=== PATIENT | female | born 1950 | race Caucasian/White ===

== ENCOUNTER 2016-04-29 09:40 | Emergency (ER) | payer MEDICARE, OTHER ==
[2016-04-29 09:11] LABS: BASOPHILS 0.5 %; BASOPHILS ABSOLUTE 0.02 10/3/uL (0.0-0.16); EOSINOPHILS 0 %; ER CBC TAT 0 Hrs 04 MinsNP; HEMATOCRIT 40.3 % (36.0-48.0); HEMOGLOBIN 13.6 g/dL (12.0-16.0); IMMATURE GRANULOCYTES 0.2 %; IMMATURE GRANULOCYTES ABSOLUTE 0.01 10/3/uL (0.0-0.11); LYMPHOCYTES 9.5 %; LYMPHOCYTES ABSOLUTE 0.42 10/3/uL (0.67-4.30); MANUAL DIFF NO %; MEAN CORPUS HGB CONC 33.7 g/dL (32.0-36.0); MEAN CORPUSCULAR HEMOGLOB 33.2 pg (26.0-34.0); MEAN CORPUSCULAR VOLUME 98.3 fL (80-100); MEAN PLATELET VOLUME 9.1 fL (9.2-13.0); MONOCYTES 2.7 %; MONOCYTES ABSOLUTE 0.12 10/3/uL (0.21-1.20); NEUTROPHILS 87.1 %; NEUTROPHILS ABSOLUTE 3.86 10/3/uL (2.02-8.40); PLATELET COUNT 313 10/3/uL (150-400); RBC DISTRIBUTION WIDTH 12.4 % (12.0-16.0); WHITE BLOOD CELLS 4.4 10/3/uL (4.5-10.5)
[2016-04-29 09:25] LABS: A/G RATIO 1.4 (0.7-1.9); ALBUMIN 4.6 G/DL (3.5-5.0); ALKALINE PHOSPHATASE 63 U/L (45-117); BUN (BLOOD UREA NITROGEN) 16 MG/DL (6-23); CALCIUM, SERUM 9.5 MG/DL (8.5-10.4); CHLORIDE, SERUM 94 MMOL/L (96-112); CREATININE 0.95 MG/DL (0.55-1.02); GFR AFRICAN AMERICAN 72 ML/MIN (>=60); GFR NON AFRICAN AMERICAN 62 ML/MIN (>=60); GLUCOSE, SERUM 112 MG/DL (60-99); POTASSIUM, SERUM 3.9 MMOL/L (3.5-5.3); SGOT(AST) 22 U/L (5-40); SGPT(ALT) 24 U/L (5-65); SODIUM, SERUM 138 MMOL/L (135-148); TOTAL BILIRUBIN 0.6 MG/DL (0-1.2); TOTAL PROTEIN 7.9 G/DL (6.0-8.5)
[2016-04-29 09:26] LABS: CO2 (CARBON DIOXIDE) 31 MMOL/L (24-34); GLOBULIN 3.3 G/DL (2.5-4.1)
[~2016-04-29 09:40] MED LIST: APRISO PO; BENTYL10 PO; CITRACAL PO; COQ10100 MG PO; DIOVAN HC1 PO; MIACALCIN NAS; MILK THISTLE PO; PEP20 PO; PROTONIX PO; SUCR PO; ZOFRANODT8 PO
[2016-04-29 11:15] LABS: ASCORBIC ACID (UR NOT ORDER) NEG (NEG); BILIRUBIN, URINE NEGATIVE (NEG); KETONE, URINE 20 MG/DL (NEG); LEUKOCYTE ESTERASE(NOT OR NEG (NEG); NITRITE (URINE) NEG (NEG); WBC (NOT ORDERED) (RFLEX) < 1 (0-5)
== END 2016-04-29 15:25 | disposition home or self-care (01) ==
LOC: ER 09:40
PROVIDERS: Nurse Practitioner
DX: R10.9 Unspecified abdominal pain (principal); R11.2 Nausea with vomiting, unspecified; I10 Essential (primary) hypertension; Z91.041 Radiographic dye allergy status; Z79.899 Other long term (current) drug therapy
CPT/HCPCS: 74176; 80053; 81001; 83605; 83690; 85025; 93005; 96374; 96375; 99285; J1980; J2405; J2550

== ENCOUNTER 2016-10-28 10:22 | Observation (INO) | payer MEDICARE, OTHER ==
[~2016-10-28] VITALS: Ht 162.6 cm; Wt 41.4 kg
--- NOTE | ~2016-10-28 | EGD ---
EGD REPORT [facility] [address] [address] NAME: LEVI DORMAN : [birth year] STATUS : ADM Nataly PAT#: [id number] AGE: 65 ADM/REG DATE : 10/28/16 MR#: [id number] REPORT SERV DATE: 10/29/16 DICTATED BY: MONICA CAMERON DATE: 10/29/16 REPORT STATUS : Draft [facility] DATE: 10/29/16 Pulmonology Patient Name: Levi Dorman Procedure Date: 10/29/2016 3:05 PM Date of : 1950 Attending MD: SHIRA CAMERON MD Procedure Date No Time: 10/29/2016 Procedure: EBUS Bronchoscopy Indications: Lung mass and suspected liver lesions Providers: SHIRA CAMERON MD Referring MD: VANESA SOARES MD Medicines: Lidocaine 2% 20 mL; Topical epinephrine 1:20K 10 mLs Complications: No immediate complications Procedure: Pre-Anesthesia Assessment: - ASA Grade Assessment: III - A patient with severe systemic disease. - A History and Physical has been performed. Patient meds and allergies have been reviewed. The risks and benefits of the procedure and the sedation options and risks were discussed with the patient. All questions were answered and informed consent was obtained. Patient identification and proposed procedure were verified prior to the procedure by the physician and the nurse in the pre-procedure area in the procedure room. Mental Status Examination: normal. Respiratory Examination: poor air movement. CV Examination: normal and RRR, no murmurs, no S3 or S4. ASA Grade Assessment: III - A patient with severe systemic disease. After reviewing the risks and benefits, the patient was deemed in satisfactory condition to undergo the procedure. The anesthesia plan was to use general anesthesia. Immediately prior to administration of medications, the patient was re-assessed for adequacy to receive sedatives. The heart rate, respiratory rate, oxygen saturations, blood pressure, adequacy of pulmonary ventilation, and response to care were monitored throughout the procedure. The physical status of the patient was re-assessed after the procedure. After obtaining informed consent, the BF [id number] was introduced through the mouth, via the endotracheal tube (the patient was intubated for the procedure) and advanced to the tracheobronchial tree. the Bronchoscope was introduced through the mouth, via the endotracheal tube (the patient was intubated for the procedure) and advanced to the tracheobronchial tree. The procedure was accomplished without difficulty. The patient EGD REPORT [address] [address] NAME: LEVI DORMAN : [birth year] STATUS : ADM Nataly PAT#: [id number] AGE: 65 ADM/REG DATE : 10/28/16 MR#: [id number] REPORT SERV DATE: 10/29/16 DICTATED BY: MONICA CAMERON DATE: 10/29/16 REPORT STATUS : Draft TRANSCRIBED BY: [employer] DATE: 10/29/16 tolerated the procedure well. Findings: The laryngeal mask airway is in normal position. The vocal cords move normally with breathing. The subglottic space is normal. The trachea is of normal caliber. The sheila is sharp. The tracheobronchial tree was examined to at least the first subsegmental level. Endobronchial disease noted in the LMS and LLL. Brushings were obtained in the left mainstem bronchus of the lung and sent for routine cytology. One sample was obtained. Bronchoalveolar lavage was performed in the left lower lobe of the lung and sent for routine cytology. 30 mL of fluid were instilled. 20 mL were returned. The return was bloody. Endobronchial biopsies were performed in the left mainstem bronchus of the lung using a forceps and sent for histopathology examination. Two samples were obtained. EBUS TBNA of left lung mass x 6 passes for cytology The FIO2 was lowered to less than 40% and argon plasma coagulation therapy was performed for hemostasis. Topical epinephrine was also applied for hemostasis. Impression: Rapid On-Site Evaluation (NYDIA): Preliminary cytology is POSITIVE for small cell carcinoma (final results are pending). Recommendation: - Chest X-ray post-procedure. - Refer to/consult with Oncology. - MRI of the brain with and without contrast - Outpatient PET CT - Outpatient Radiation therapy consult for PCI vs whole brain. If patient not an appropriate for chemotherapy, I would recommend XRT to the LMS due to airway obstruction. Attending Participation: I personally performed the entire procedure. SHIRA CAMERON MD 10/29/2016 5:14 PM This report has been signed electronically. Number of Addenda: 0 Note Initiated On: 10/29/2016 3:05 PM [address] [id number]
--- NOTE | ~2016-10-28 | DS ---
Discharge Summary [facility] [address] [place]. [address] NAME: JOSE ARCEO : [birth year] STATUS : DIS Nataly PAT#: [id number] AGE: 65 ADM/REG DATE : 10/28/16 MR#: [id number] REPORT SERV DATE: 10/31/16 DICTATED BY: HALIMA CONWAY II DATE: 10/30/16 REPORT STATUS : Draft TRANSCRIBED BY: MODL DATE: 10/30/16 ADMISSION DATE: 10/28/2016 DISCHARGE DATE: 10/30/2016 DISCHARGE DIAGNOSES: 1. Likely extensive stage IV small cell lung cancer. 2. Dysphagia secondary to impinging mass. 3. Hypokalemia. 4. Prerenal acute kidney injury. 5. Diarrhea with history of Crohn's. CONSULTS: Dr. Lucas with GI; Dr. Lyn with [facility]; Dr. Salguero and Dr. Arce with Pulmonary. PROCEDURES: Bronchoscopy with endobronchial ultrasound-guided biopsies. BRIEF HPI: The patient is a 65-year-old female with the above history, who presented to [facility] due to dysphagia to solids, weight loss. For detailed history and physical examination, please see Dr. Looney's note from 10/28/2016. HOSPITAL COURSE: The patient's chest CT which had been done on 10/22/2016 showed a central lung mass involving the left hilum with extension of the left mediastinum suspicious for malignancy. The mass causes mild to moderate narrowing of the main descending bronchus. Also, other subcarinal nodes in several hypodense liver lesions concerning for metastatic disease. The patient subsequently underwent endobronchial biopsies with preliminary report coming back with small-cell carcinoma. Dr. Lyn was consulted and we will arrange office visit once pathology is finalized and outpatient PET scan. MRI of the brain will be done prior to discharge today. Otherwise, on admission, her creatinine was mildly elevated at 1.39 and subsequently trended down with fluids to 0.69. Her potassium was replaced. Dr. Lucas was consulted for dysphagia and recommended a barium swallow, however, as the patient is still able to keep down soft foods and liquids, she elected to defer the barium swallow. At this point, the patient is stable for discharge. DISCHARGE INSTRUCTIONS: 1. Multivitamin one tablet daily. 2. Protonix 40 mg p.o. b.i.d. 3. CoQ10. 4. Aspirin 650 mg p.o. b.i.d. p.r.n. headache. 5. Imodium 2 mg p.o. t.i.d. p.r.n. stools. 6. Zofran p.r.n. 7. Tessalon Perles 200 mg p.o. t.i.d. p.r.n. cough. DISCHARGE INSTRUCTIONS: The patient will follow with Dr. Lyn as scheduled. JOSE L/JESSICA Discharge Summary [address] [address] NAME: JOSE ARCEO : [birth year] STATUS : DIS Nataly PAT#: [id number] AGE: 65 ADM/REG DATE : 10/28/16 MR#: [id number] REPORT SERV DATE: 10/31/16 DICTATED BY: HALIMA CONWAY II DATE: 10/30/16 REPORT STATUS : Draft TRANSCRIBED BY: JESSICA DATE: 10/30/16 Halima Conway II, MD / [id number] CC: Guevara Yepez M.D.
--- NOTE | ~2016-10-28 | HP ---
History And Physical [place] [id number] [facility] [place]. [address] NAME: JOSE ARCEO : [birth year] STATUS : ADM Nataly PAT#: [id number] AGE: 65 ADM/REG DATE : 10/28/16 MR#: [id number] REPORT SERV DATE: 10/28/16 DICTATED BY: ALMITA BOND DATE: 10/28/16 REPORT STATUS : Draft TRANSCRIBED BY: MODL DATE: 10/28/16 DATE OF ADMISSION: 10/28/2016 HISTORY OF PRESENT ILLNESS: The patient is very pleasant 65-year-old female who presented to [facility] because she was complaining of inability to swallow solid food as well as some nausea and episodes of vomiting and food regurgitation. She denies abdominal pain. She denies any fever. She said that she had loose stool like diarrhea before, but currently her diarrhea has resolved. She said she had chronic cough, which did not get better after she was given antibiotic, Ceftin, so her primary care physician decided to do a CT scan on her chest, which was done on 10/22/2016 and it showed central mass at the hilum, which was poorly circumscribed with extension to the left mediastinum, highly suspicious for malignancy. It was causing mild to moderate narrowing of the main descending bronchus and recommendation was done to be evaluated by Pulmonary Medicine. There was also suspected postobstructive pneumonitis and large subcarinal lymph node suspicious for jason metastatic disease and several hypodense liver lesions, both left and right lobe of the liver, largest 13 mm in the anterior segment of the right lobe of the liver suspicious for liver metastatic disease. The patient reported that since she is hypokalemic and not feeling well, she presented to [facility]. She denies any chest pain. No shortness of breath. No abdominal pain. No fever. No rash. REVIEW OF SYSTEMS: All 14-point review of systems done and negative except what is stated in the history of present illness. PAST MEDICAL HISTORY: Known for history of collagenous colitis, questionable history of Crohn disease. She denies any history of diabetes. No heart problems. HOME MEDICATIONS: Include Imodium as needed for diarrhea, multivitamins daily, Zofran 8 mg one dose she was getting. She was on Protonix 40 mg twice a day, coenzyme Q10. She was also on valsartan with hydrochlorothiazide 160/12.5 once a day. ALLERGIES: SHE IS ALLERGIC TO IODINE AND ALSO TO ADHESIVE TAPE. SOCIAL HISTORY: She quit smoking 15 years ago, used to smoke one pack per day. No alcohol. No recreational drugs. She is . Her is at bedside. She does not have children. FAMILY HISTORY: Her mother had heart disease as well as the father had heart disease. PHYSICAL EXAMINATION: GENERAL: A very thin, cachectic female, not in acute distress. Resting quietly. VITAL SIGNS: Blood pressure initially was 98/65, then increased to 120/70 after she was given IV fluid bolus; temperature 98.6; heart rate was 106, then came down to 90s; respiratory rate 16; and oxygen saturation was 99% on room air. HEENT: Head atraumatic, normocephalic. Conjunctivae clear. Pupils are equal and reactive to light and accommodation. Extraocular muscles are intact. History And Physical [address] [address] NAME: JOSE ARCEO : [birth year] STATUS : ADM Nataly PAT#: [id number] AGE: 65 ADM/REG DATE : 10/28/16 MR#: [id number] REPORT SERV DATE: 10/28/16 DICTATED BY: ALMITA BOND DATE: 10/28/16 REPORT STATUS : Draft TRANSCRIBED BY: JESSICA DATE: 10/28/16 NECK: Supple. Trachea is midline. No supraclavicular or cervical lymphadenopathy. LUNGS: Diminished breath sounds bilaterally. Decreased respiratory effort. CARDIOVASCULAR: Regular rate and rhythm. Point of maximal impulse not displaced. ABDOMEN: Soft, nontender, nondistended. Positive normoactive bowel sounds. EXTREMITIES: No clubbing, cyanosis, or edema. SKIN: Normal color and turgor. PSYCHIATRIC: Normal mood and affect. NEUROLOGIC: She is awake, alert, oriented in time, place, and person. Muscle strength is 5/5 bilaterally on upper and lower extremities. LABORATORY RESULTS: Sodium 139, potassium 2.8, chloride 97, carbon dioxide 27, BUN 15, creatinine 1.39, blood sugar 105. Her ALT 15 and AST 20. Lipase 89. White count 5.4, hemoglobin 12.4, hematocrit 36.1, platelet count 439. UA did not show any evidence of urinary infection. It showed only small amount of leukocyte esterase and 14 white cells, which is not consistent with urinary infection, although culture was done. My partner will follow up on the urinary culture. The CT of the chest as I described above was done recently on 10/22/2016. ASSESSMENT AND PLAN: This is a very pleasant 65-year-old female with a history of questionable Crohn disease versus collagenous colitis presented with, 1. Dysphagia for solids with some episodes of nausea and food regurgitation. 2. Hypokalemia. 3. Acute kidney injury secondary to dehydration. 4. New diagnosis of lung mass with some obstruction as well as liver lesions very suspicious with metastatic lung cancer. 5. We will admit the patient to cardiac telemetry bed, and for her dehydration, we will start the patient on normal saline intravenous fluids as well as we will replace her potassium. She was already given replacement in the emergency room of potassium chloride, and we are going to recheck her potassium level at 6 p.m. If it is low, it will be replaced again by protocol. 6. Regarding her acute kidney injury secondary to dehydration, IV fluids will be given to her. 7. Dysphagia for solids. I will put the patient on clear liquid diet and Protonix IV, and this was discussed with small business banking officer, Dr. Lucas who came to evaluate this patient in the emergency room and he wants first to discuss with Dr. Salguero since he thinks that the dysphagia could be related to pressure on the esophagus from the tumor, which is growing in the bronchus, so he wanted to see what is the shell assembler doing first and then to decide when he will do his workup, possible barium esophagram to be done later after pulmonary evaluation. 8. Lung mass with extension to the bronchus with possible postobstructive pneumonitis. We will consult Dr. Salguero, shell assembler. The patient had an appointment with him, but since she is here, we will ask Dr. Salguero to evaluate this patient. 9. We will also check PT/INR on this patient. 10.Regarding deep venous thrombosis prophylaxis, we will not put her on prophylactic heparin and Lovenox now because there is a possibility she may have a procedure tomorrow, but my colleague hospitalist, Dr. Brown or his partner will decide on this History And Physical [address] [place]. [address] NAME: JOSE ARCEO : 46 STATUS : ADM Nataly PAT#: [id number] AGE: 65 ADM/REG DATE : 10/28/16 MR#: [id number] REPORT SERV DATE: 10/28/16 DICTATED BY: ALMITA BOND DATE: 10/28/16 REPORT STATUS : Draft TRANSCRIBED BY: MODLazaro DATE: 10/28/16 after discussion with shell assembler when is this patient going to have procedure. Everything was discussed with the patient and her . MG/JESSICA Almita Bond M.D. / [id number] CC: Guevara Yepez M.D. David Collins, M.D. Krishnendu Bhadra, M.D.
--- NOTE | ~2016-10-28 | CN ---
Consultation Report [facility] [address] [place]. [address] NAME: JOSE ARCEO : [birth year] STATUS : ADM Nataly PAT#: [id number] AGE: 65 ADM/REG DATE : 10/28/16 MR#: [id number] REPORT SERV DATE: 10/28/16 DICTATED BY: LAVERNE RAO DATE: 10/28/16 REPORT STATUS : Draft TRANSCRIBED BY: MODL DATE: 10/28/16 CONSULTATION DATE OF CONSULTATION: 10/28/2016 HISTORY OF PRESENT ILLNESS: This is a 65-year-old white female, admitted with cough, dysphagia for solids, weight loss, no GERD, some nausea, no bleeding, no fever. Recent CT as outpatient by Dr. Pitts revealing a lung mass involving the left hilum, also involving left mediastinum, involving the left mainstem bronchus with some compromise resulting in pneumonitis or early pneumonia, also had some subcarinal nodes that are new, and several lesions suspicious for metastatic disease in the left and right lobe of the liver. Pulmonary consult is pending. She has history of hypertension, history of diverticular disease, history of collagenous colitis, remote history of Crohn's, hiatal hernia, and duodenal ulcers. She has had back surgery, neck surgery, appendectomy, and lysis of adhesions. FAMILY HISTORY: Positive for colon cancer. SOCIAL HISTORY: Former smoker. Negative ETOH. White count 5400, hemoglobin 12.4, platelet count 439,000. Potassium 2.8. Normal LFTs. PHYSICAL EXAMINATION: GENERAL: On physical exam, a thin, alert white female. HEENT: Anicteric. NECK: Negative. CHEST: Clear to auscultation. HEART: Regular rate and rhythm. No murmur or gallop. ABDOMEN: Soft, nontender. Bowel sounds active. EXTREMITIES: Grossly intact. NEUROLOGIC: Grossly intact. ASSESSMENT AND PLAN: 1. Cough, weight loss. CT with left hilum mass, left mediastinal, left mainstem bronchus with obstruction pneumonitis, subcarinal nodes, and possible liver mets. 2. Dysphagia with solids, nausea, questionable relationship to the above findings. 3. Hypertension. 4. History of duodenal ulcer. 5. History of collagenous colitis. 6. Hypokalemia. SUGGESTIONS: 1. Pulmonary consult pending with Dr. Salguero. 2. If okay with Pulmonary, we will begin GI workup with a barium swallow. May need additional evaluation depending on results of that test. Consultation Report [place] [id number]. [address] NAME: JOSE ARCEO : [birth year] STATUS : ADM Nataly PAT#: [id number] AGE: 65 ADM/REG DATE : 10/28/16 MR#: [id number] REPORT SERV DATE: 10/28/16 DICTATED BY: LAVERNE RAO DATE: 10/28/16 REPORT STATUS : Draft TRANSCRIBED BY: JESSICA DATE: 10/28/16 Thank you very much for this consultation. JAYNE/JESSICA Laverne Rao M.D. / [id number] CC: Richa Looney M.D.
--- NOTE | ~2016-10-28 | CN ---
Consultation Report [facility] [address] [place]. [address] NAME: JOSE ARCEO : [birth year] STATUS : ADM Nataly PAT#: [id number] AGE: 65 ADM/REG DATE : 10/28/16 MR#: [id number] REPORT SERV DATE: 10/29/16 DICTATED BY: ARACELI SOARES DATE: 10/28/16 REPORT STATUS : Draft TRANSCRIBED BY: MODL DATE: 10/28/16 PULMONARY CONSULTATION DATE OF CONSULTATION: 11/04/2016 REASON FOR CONSULTATION: Lung mass. HISTORY OF PRESENT ILLNESS: Ms. Arceo is a 66-year-old white female, former smoker, with a history of Crohn's disease, who was admitted with a 2- to 3-week history of increasing dysphagia that has progressed to terri emesis along with associated 89-pound weight loss. She has a large left hilar mass. It was initially noted on the outpatient CT scan of the chest done on 10/22/2016, with possible associated post-obstructive pneumonia and narrowing of the left mainstem bronchus, so Pulmonary was consulted for assistance. She states she was doing well until 2 to 3 weeks ago when she developed a cough productive of clear mucus followed by the dysphagia symptoms as described. She was treated by her primary care physician with antibiotics, but had no improvement, but rather had progression of her symptoms, so she was evaluated with a CT scan of the chest done on 10/22/2016, as noted. She states that over the past two weeks she has had increasing difficulty eating. She does have Crohn's disease as noted and states that her p.o. intake has been poor for several years. She states she was able to "eat normally" approximately 3 weeks ago and then her cough developed. She noted that the cough was worse with solid foods, so she changed her diet to pureed foods only. She states that her symptoms worsened and she has only been able to take in liquids for the past two to three days. She denies fever, chills, night sweats, GERD symptoms, hemoptysis, dyspnea on exertion, or wheezing. She denies prior pulmonary diagnosis and has been on no outpatient pulmonary medications. PAST MEDICAL HISTORY: 1. Hypertension. 2. Collagenous colitis. 3. Crohn's disease. 4. Hiatal hernia. 5. Diverticular disease. 6. Previous back and neck surgery. 7. Appendectomy. 8. Duodenal ulcers. 9. Surgical lysis of adhesions. FAMILY HISTORY: She denies a family history of pulmonary diseases. SOCIAL HISTORY: She smoked one pack of cigarettes per day for 30 years and quit 15 years ago. She denies ethanol intake, past/present drug use, occupational exposures or chewing Consultation Report [place] [id number] [place]. [address] NAME: JOSE ARCEO : 46 STATUS : ADM Nataly PAT#: [id number] AGE: 65 ADM/REG DATE : 10/28/16 MR#: [id number] REPORT SERV DATE: 10/29/16 DICTATED BY: ARACELI SOARES DATE: 10/28/16 REPORT STATUS : Draft TRANSCRIBED BY: JESSICA DATE: 10/28/16 tobacco. She is and has no children. MEDICATIONS: Outpatient and inpatient medications were reviewed and are as documented in the record. As noted, she was on no pulmonary medications as an outpatient. ALLERGIES: CONTRAST DYE/IODINE CAUSES RASH. REVIEW OF SYSTEMS: A 10-point system review was conducted and is remarkable for the symptoms as described in the history of present illness. She has chronic diarrhea related to her collagenous colitis and Crohn's disease. She states this has been unchanged since the onset of her current pulmonary symptom. PHYSICAL EXAMINATION: VITAL SIGNS: Temperature 98.7 degrees, heart rate 89, blood pressure 148/82, respiratory rate 20, and oxygen saturation 99% on room air. GENERAL: A very pleasant, alert white female. Appears to be oriented, in no apparent distress. Very thin with evidence of recent weight loss. HEENT: Normocephalic. Atraumatic. There is no scleral icterus. The conjunctivae are clear. The oropharynx is clear. NECK: Supple. No lymphadenopathy or JVD is noted. LUNGS: Good effort. Good air movement. The lungs are clear to auscultation bilaterally. HEART: Regular rate and rhythm with no ectopy. ABDOMEN: Soft. Nontender. Nondistended. There are normal bowel sounds in all four quadrants. No hepatomegaly or splenomegaly was noted. BILATERAL EXTREMITIES: There is no clubbing, cyanosis, or edema. NEUROLOGICAL: A limited exam. Found to be nonfocal. SKIN: No rashes are noted. LABORATORY RESULTS: Labs were reviewed and are as documented in the record. Notable labs include a white blood cell count of 5.4. The PT is 13.9 with an INR of 1.1. Platelet count is 439. IMAGING: The CT scan of the chest done as an outpatient on 10/22/2016, revealed a large left hilar mass extending into the mediastinum with impingement on the left mainstem bronchus. There is a left lower lobe infiltrate consistent with probable post-obstructive pneumonia. There are enlarged subcarinal nodes. Also noted on the scan were several hypodense lesions in the liver that are new since a CT of the abdomen done in 04/2016. ASSESSMENT AND PLAN: Ms. Arceo is a 66-year-old white female, a former smoker, who was admitted with increasing dysphagia as well as cough. She has a large left lung mass with enlarged subcarinal nodes and liver lesions as described above. The lung mass is most Consultation Report [address] [address] NAME: JOSE ARCEO : 46 STATUS : ADM Nataly PAT#: [id number] AGE: 65 ADM/REG DATE : 10/28/16 MR#: [id number] REPORT SERV DATE: 10/29/16 DICTATED BY: ARACELI SOARES DATE: 10/28/16 REPORT STATUS : Draft TRANSCRIBED BY: JESSICA DATE: 10/28/16 likely malignant, and the liver lesions are suspicious for metastatic disease. 1. Recommend bronchoscopy with biopsies including lymph node biopsies per Interventional career based intervention coordinator. This was discussed at length with the patient and her including all the CT findings of the lung mass and large subcarinal nodes and liver lesions. 2. We discussed possible options including bronchoscopy with biopsies versus a biopsy of one of the liver lesions. The potential risks and benefits of each approach were discussed including the potential advantages of bronchoscopy such as airway inspection. The patient opted for bronchoscopy. 3. Plan bronchoscopy with biopsies per Interventional career based intervention coordinator, Dr. Aida Salguero, tomorrow. 4. Recommend further evaluation of dysphagia as planned per GI after bronchoscopy. Thank you very much for this consultation. PS/MODLazaro Araceli Soares M.D. / [id number] CC: Amy Patiño M.D.
--- NOTE | ~2016-10-28 | CN ---
Consultation Report [facility] [address] [place]. [address] NAME: JOSE ARCEO : 46 STATUS : ADM Nataly PAT#: [id number] AGE: 65 ADM/REG DATE : 10/28/16 MR#: [id number] REPORT SERV DATE: 10/30/16 DICTATED BY: ALFIE HARRISON MARK SANDERS DATE: 10/30/16 REPORT STATUS : Draft TRANSCRIBED BY: MODLazaro DATE: 10/30/16 CONSULTATION DATE OF CONSULTATION: 10/30/2016 REASON FOR CONSULTATION: Lung cancer. HISTORY OF PRESENT ILLNESS: Ms. Arceo is a 65-year-old white female, who was admitted with several week history of dysphagia. This has been associated with vomiting as well as extensive weight loss. A CT of the chest on 10/22/2016 revealed a 4.6 x 3.2 x 3.6 cm mass at the left hilum. This appeared to invade into the left hilum and mediastinum. There was a 2.4 cm subcarinal node noted. No other lymphadenopathy was seen. Additionally, there were some patchy infiltrates on the left lower lobe, which were concerning for either interstitial spread of cancer versus post-obstructive pneumonia, pneumonitis. Additionally, there were multiple liver lesions in bilateral lobes of the liver up to 13 mm in greatest dimension. I have personally reviewed the CT scan. Also, I personally reviewed a CT that she had of her abdomen and pelvis in April of this year. No liver lesions were noted on that scan. Portions of the lung that are included in that scan do not show malignancy either. Bronchoscopy and EBUS were performed yesterday by Dr. Salguero with initial pathology being positive for small cell carcinoma. Final pathology is still pending. The patient states that lately she has been feeling weak, but since being in the hospital and receiving fluids that she is feeling stronger. She continues to have a cough that she associates with mucus in her throat. She denies any shortness of breath. She denies any pain. She denies any neurological symptoms including double vision, weakness, or balance issues. She has a history of smoking in the past, but quit 15 years ago. PAST MEDICAL HISTORY: 1. Hypertension. 2. Crohn disease. 3. Collagenous colitis. 4. Diverticular disease. SOCIAL HISTORY: She smoked one pack a day until approximately 15 years ago. She is . I follow her for CLL. FAMILY HISTORY: Significant for heart disease. HOME MEDICATIONS: Reviewed on the chart. ALLERGIES: IODINE AND ADHESIVE TAPE. REVIEW OF SYSTEMS: 12-point review of systems negative except as per HPI. Consultation Report [facility] [address] [place]. [address] NAME: JOSE ARCEO : 46 STATUS : ADM Nataly PAT#: [id number] AGE: 65 ADM/REG DATE : 10/28/16 MR#: [id number] REPORT SERV DATE: 10/30/16 DICTATED BY: ALFIE HARRISON MARK SANDERS DATE: 10/30/16 REPORT STATUS : Draft TRANSCRIBED BY: JESSICA DATE: 10/30/16 PHYSICAL EXAMINATION: VITAL SIGNS: Blood pressure 119/73, pulse 74, temperature 97.8. GENERAL: Thin, no acute distress. HEENT: Anicteric sclerae. Oropharynx clear. NECK: Supple. No lymphadenopathy. CARDIOVASCULAR: Regular rate and rhythm. Normal S1, S2. LUNGS: Clear to auscultation bilaterally. Fair effort. ABDOMEN: Soft, nontender. No organomegaly. EXTREMITIES: No clubbing, cyanosis, or edema. LABORATORY DATA: White count 4200, hemoglobin 10.5 g, platelets 304,000. Creatinine 0.69. ASSESSMENT AND PLAN: Ms. Arceo is a 65-year-old white female with what appears to be stage 4 small cell lung cancer. Final pathology is pending. However, review of the CT scan from 10/22/2016 and from April of this year are consistent with small cell cancer. I discussed the diagnosis with the patient and her . An MRI of the brain has been ordered, which I agree with. An outpatient PET has been recommended, which I will order. I discussed with both of them that after this testing, I would recommend palliative chemotherapy. I did discuss a potential for trials of immunotherapy in the second-line setting. She is agreeable to pursuing treatment as an outpatient. I did discuss potential side effects of treatment. I would recommend that she be discharged today if possible and have follow up with me in the clinic where we will begin treatment. Thank you for the consultation. ZENA/JESSICA Peterson Harrison IV, M.D. / [id number] CC: Guevara Yepez M.D.
[2016-10-28 10:57] LABS: BASOPHILS 0.4 %; BASOPHILS ABSOLUTE 0.02 10/3/uL (0.0-0.16); EOSINOPHILS 0.4 %; EOSINOPHILS ABSOLUTE 0.02 10/3/uL (0.0-0.53); ER CBC TAT 0 Hrs 10 Mins; HEMATOCRIT 36.1 % (36.0-48.0); HEMOGLOBIN 12.4 g/dL (12.0-16.0); IMMATURE GRANULOCYTES 0.2 %; IMMATURE GRANULOCYTES ABSOLUTE 0.01 10/3/uL (0.0-0.11); LYMPHOCYTES 23.1 %; LYMPHOCYTES ABSOLUTE 1.24 10/3/uL (0.67-4.30); MANUAL DIFF NO %; MEAN CORPUS HGB CONC 34.3 g/dL (32.0-36.0); MEAN CORPUSCULAR HEMOGLOB 32.4 pg (26.0-34.0); MEAN CORPUSCULAR VOLUME 94.3 fL (80-100); MEAN PLATELET VOLUME 8.8 fL (9.2-13.0); MONOCYTES 7.6 %; MONOCYTES ABSOLUTE 0.41 10/3/uL (0.21-1.20); NEUTROPHILS 68.3 %; NEUTROPHILS ABSOLUTE 3.66 10/3/uL (2.02-8.40); PLATELET COUNT 439 10/3/uL (150-400); RBC DISTRIBUTION WIDTH 12.2 % (12.0-16.0); RED CELL COUNT 3.83 10/6/uL (4.0-5.6); WHITE BLOOD CELLS 5.4 10/3/uL (4.5-10.5)
[2016-10-28 11:12] LABS: A/G RATIO 0.8 (0.7-1.9); ALBUMIN 3.3 G/DL (3.5-5.0); ALKALINE PHOSPHATASE 98 U/L (45-117); BUN (BLOOD UREA NITROGEN) 15 MG/DL (6-23); CALCIUM, SERUM 9.1 MG/DL (8.5-10.4); CHLORIDE, SERUM 97 MMOL/L (96-112); CO2 (CARBON DIOXIDE) 27 MMOL/L (24-34); CREATININE 1.39 MG/DL (0.55-1.02); GFR AFRICAN AMERICAN 45 ML/MIN (>=60); GFR NON AFRICAN AMERICAN 39 ML/MIN (>=60); GLOBULIN 4.1 G/DL (2.5-4.1); GLUCOSE, SERUM 105 MG/DL (60-99); SGOT(AST) 20 U/L (5-40); SGPT(ALT) 15 U/L (5-65); TOTAL BILIRUBIN 0.2 MG/DL (0-1.2); TOTAL PROTEIN 7.4 G/DL (6.0-8.5)
[2016-10-28 11:19] LABS: POTASSIUM, SERUM 2.8 MMOL/L (3.5-5.3); SODIUM, SERUM 139 MMOL/L (135-148)
[2016-10-28] MEDS ORDERED: PROTONIX PO (12:29)
[2016-10-28] MEDS ORDERED: CO Q-10 PO (12:29)
[2016-10-28] MEDS ORDERED: DIOVAN HC1 PO (12:29)
[2016-10-28] MEDS ORDERED: MULTIVIT/MIN PO (12:29)
[2016-10-28] MEDS ORDERED: ASA5GR PO (12:30)
[2016-10-28] MEDS ORDERED: IMOD PO (12:30)
[2016-10-28] MEDS ORDERED: ZOFRANODT8 PO (12:31)
[2016-10-28 12:55] LABS: ASCORBIC ACID (UR NOT ORDER) NEG (NEG); BILIRUBIN, URINE NEGATIVE (NEG); ER URINALYSIS TAT 0 Hrs 13 Mins; KETONE, URINE NEGATIVE (NEG); LEUKOCYTE ESTERASE(NOT OR SMALL (NEG); NITRITE (URINE) NEG (NEG); WBC (NOT ORDERED) (RFLEX) 14 (0-5)
[2016-10-28 18:30] LABS: INTERNATIONAL NORMAL RATI 1.1 UNITS (-)
[2016-10-28 18:33] LABS: PROTIME (NOT ORD) 13.9 SEC (12.0-14.5)
[2016-10-29 04:33] LABS: BASOPHILS 0.5 %; BASOPHILS ABSOLUTE 0.02 10/3/uL (0.0-0.16); EOSINOPHILS 1.6 %; EOSINOPHILS ABSOLUTE 0.06 10/3/uL (0.0-0.53); HEMOGLOBIN 10.4 g/dL (12.0-16.0); IMMATURE GRANULOCYTES 0.3 %; IMMATURE GRANULOCYTES ABSOLUTE 0.01 10/3/uL (0.0-0.11); LYMPHOCYTES 26.1 %; MEAN CORPUSCULAR HEMOGLOB 32.1 pg (26.0-34.0); MEAN CORPUSCULAR VOLUME 94.4 fL (80-100); MEAN PLATELET VOLUME 8.3 fL (9.2-13.0); MONOCYTES 12.3 %; MONOCYTES ABSOLUTE 0.47 10/3/uL (0.21-1.20); NEUTROPHILS 59.2 %; NEUTROPHILS ABSOLUTE 2.27 10/3/uL (2.02-8.40); RBC DISTRIBUTION WIDTH 12.3 % (12.0-16.0); RED CELL COUNT 3.24 10/6/uL (4.0-5.6); WHITE BLOOD CELLS 3.8 10/3/uL (4.5-10.5)
[2016-10-29 04:34] LABS: HEMATOCRIT 30.6 % (36.0-48.0); MANUAL DIFF NO %; PLATELET COUNT 291 10/3/uL (150-400)
[2016-10-29 04:52] LABS: A/G RATIO 0.8 (0.7-1.9); ALBUMIN 2.6 G/DL (3.5-5.0); ALKALINE PHOSPHATASE 86 U/L (45-117); BUN (BLOOD UREA NITROGEN) 8 MG/DL (6-23); CALCIUM, SERUM 7.9 MG/DL (8.5-10.4); CHLORIDE, SERUM 107 MMOL/L (96-112); CO2 (CARBON DIOXIDE) 25 MMOL/L (24-34); CREATININE 0.87 MG/DL (0.55-1.02); GFR AFRICAN AMERICAN 80 ML/MIN (>=60); GFR NON AFRICAN AMERICAN 69 ML/MIN (>=60); GLOBULIN 3.4 G/DL (2.5-4.1); GLUCOSE, SERUM 83 MG/DL (60-99); POTASSIUM, SERUM 3.7 MMOL/L (3.5-5.3); SGOT(AST) 17 U/L (5-40); SGPT(ALT) 10 U/L (5-65); SODIUM, SERUM 140 MMOL/L (135-148); TOTAL BILIRUBIN 0.2 MG/DL (0-1.2)
[2016-10-30 04:35] LABS: BASOPHILS 0.7 %; BASOPHILS ABSOLUTE 0.03 10/3/uL (0.0-0.16); EOSINOPHILS 1.2 %; EOSINOPHILS ABSOLUTE 0.05 10/3/uL (0.0-0.53); HEMATOCRIT 30.9 % (36.0-48.0); HEMOGLOBIN 10.5 g/dL (12.0-16.0); IMMATURE GRANULOCYTES 0.2 %; IMMATURE GRANULOCYTES ABSOLUTE 0.01 10/3/uL (0.0-0.11); LYMPHOCYTES 23.5 %; LYMPHOCYTES ABSOLUTE 0.98 10/3/uL (0.67-4.30); MEAN CORPUSCULAR HEMOGLOB 32.2 pg (26.0-34.0); MEAN CORPUSCULAR VOLUME 94.8 fL (80-100); MEAN PLATELET VOLUME 8.4 fL (9.2-13.0); MONOCYTES 7.9 %; MONOCYTES ABSOLUTE 0.33 10/3/uL (0.21-1.20); NEUTROPHILS 66.5 %; NEUTROPHILS ABSOLUTE 2.77 10/3/uL (2.02-8.40); PLATELET COUNT 304 10/3/uL (150-400); RBC DISTRIBUTION WIDTH 12.4 % (12.0-16.0); RED CELL COUNT 3.26 10/6/uL (4.0-5.6); WHITE BLOOD CELLS 4.2 10/3/uL (4.5-10.5)
[2016-10-30 04:36] LABS: MANUAL DIFF NO %
[2016-10-30 05:09] LABS: BUN (BLOOD UREA NITROGEN) 6 MG/DL (6-23); CALCIUM, SERUM 7.8 MG/DL (8.5-10.4); CHLORIDE, SERUM 108 MMOL/L (96-112); CO2 (CARBON DIOXIDE) 26 MMOL/L (24-34); CREATININE 0.69 MG/DL (0.55-1.02); GFR AFRICAN AMERICAN 104 ML/MIN (>=60); GFR NON AFRICAN AMERICAN 90 ML/MIN (>=60); GLUCOSE, SERUM 75 MG/DL (60-99); POTASSIUM, SERUM 3.6 MMOL/L (3.5-5.3); SODIUM, SERUM 143 MMOL/L (135-148)
[2016-10-30] MEDS ORDERED: TESSALON200 MG PO (11:35)
== END 2016-10-30 12:36 | disposition home or self-care (01) ==
LOC: ER 10:22 → CDU1 13:00 → CDU2 13:00 → 5SO 13:00 → CDU1 13:21 → CDU2 14:34
PROVIDERS: Emergency Medicine; Hospitalist; Internal Medicine
PROC: 0BBL8ZX Excision of Left Lung, Via Natural or Artificial Opening Endoscopic, Diagnostic (ICD-10-PCS; principal; 2016-10-28)
PROC: 0BB78ZX Excision of Left Main Bronchus, Via Natural or Artificial Opening Endoscopic, Diagnostic (ICD-10-PCS; 2016-10-28)
PROC: 0BB78ZX Excision of Left Main Bronchus, Via Natural or Artificial Opening Endoscopic, Diagnostic (ICD-10-PCS; 2016-10-28)
PROC: 0B9J8ZX Drainage of Left Lower Lung Lobe, Via Natural or Artificial Opening Endoscopic, Diagnostic (ICD-10-PCS; 2016-10-28)
DX: C34.92 Malignant neoplasm of unspecified part of left bronchus or lung (principal); I10 Essential (primary) hypertension; K50.90 Crohn's disease, unspecified, without complications; K44.9 Diaphragmatic hernia without obstruction or gangrene; E87.6 Hypokalemia; N17.9 Acute kidney failure, unspecified; R19.7 Diarrhea, unspecified; K57.90 Diverticulosis of intestine, part unspecified, without perforation or abscess without bleeding; Z90.49 Acquired absence of other specified parts of digestive tract; Z88.8 Allergy status to other drugs, medicaments and biological substances; Z87.891 Personal history of nicotine dependence; Z79.899 Other long term (current) drug therapy
CPT/HCPCS: 70553; 71010; 80048; 80053; 81001; 83690; 83735; 84132; 84443; 85025; 85610; 87077; 87086; 87186; 88112; 88172; 88173; 88305; 88333; 88341; 88342; 96365; 96366; 96374; 96375; 96376; 99285; A9270-GY; A9577; C1725; C9113; G0378; J2370; J3475